=== PATIENT | male | born 1980 | race African-American/Black ===

== ENCOUNTER 2017-08-16 07:08 | Outpatient (CLI) | payer OTHER ==
[~2017-08-16 07:08] MED LIST: ATIVAN1 M1; AVELOX ABC PAC400 MG PO; CIPRO500 MG PO; DEPAKOTE ER500 MG; DOLOGEN CAPLET1 EACH PO; GILTUSS TR TAB1 EACH PO; NEO-BACIT-POLY3.5 G1 OP; RISPERDAL4 MG; TESSALON200 MG; WELLBUTRIN SR100 MG; ZITHROMAX200 MG PO; ZITHROMAX500 MG; ZYRTEC10 MG PO
== END 2017-08-16 07:13 | disposition home or self-care (01) ==
LOC: LAB 07:08
DX: N41.0 Acute prostatitis (principal)

== ENCOUNTER 2017-12-12 17:40 | Outpatient (CLI) | payer OTHER | END 2017-12-12 17:50 | disposition home or self-care (01) | LOC: RAD 17:40 | DX: M54.5 Low back pain (principal) ==

== ENCOUNTER 2017-12-25 10:44 | Outpatient (CLI) | payer OTHER | END 2017-12-25 10:50 | disposition home or self-care (01) | LOC: LAB 10:44 | DX: M54.5 Low back pain (principal); N64.9 Disorder of breast, unspecified; E78.2 Mixed hyperlipidemia; R73.01 Impaired fasting glucose ==

== ENCOUNTER 2017-12-25 13:32 | Outpatient (CLI) | payer OTHER | END 2017-12-25 13:39 | disposition home or self-care (01) | LOC: RAD 13:32 | DX: R05 Cough (principal) ==

== ENCOUNTER 2017-12-30 09:37 | Outpatient (CLI) | payer OTHER | END 2017-12-30 09:45 | disposition home or self-care (01) | LOC: SONOGRAMA 09:37 | DX: N64.9 Disorder of breast, unspecified (principal) ==

== ENCOUNTER 2018-11-04 04:08 | Emergency (ER) | payer OTHER ==
[~2018-11-04] VITALS: Ht 162.6 cm; Wt 113.4 kg
[2018-11-04] MEDS ORDERED: ALBUTEROL2.5 MG/3 M IH (08:02)
[2018-11-04] MEDS ORDERED: ZYNCOF 20-400120 ML PO (08:02)
[2018-11-04] MEDS ORDERED: SYMBICORT 16010.2 GM IH (08:02)
== END 2018-11-04 08:24 | disposition home or self-care (01) ==
LOC: ER 04:08
DX: J45.998 Other asthma (principal)

== ENCOUNTER 2019-01-27 12:28 | Outpatient (CLI) | payer OTHER ==
[~2019-01-27 12:28] MED LIST changes: +ALBUTEROL2.5 MG/3 M IH; +SYMBICORT 16010.2 GM IH; +ZYNCOF 20-400120 ML PO
== END 2019-01-27 12:38 | disposition home or self-care (01) ==
LOC: RAD 12:28
DX: M25.561 Pain in right knee (principal)

== ENCOUNTER 2019-05-31 11:45 | Outpatient (CLI) | payer OTHER | END 2019-05-31 15:00 | disposition home or self-care (01) | LOC: LAB 11:45 | DX: A49.01 Methicillin susceptible Staphylococcus aureus infection, unspecified site (principal); B01.0 Varicella meningitis ==

== ENCOUNTER 2019-08-06 11:12 | Outpatient (CLI) | payer OTHER | END 2019-08-06 12:00 | disposition home or self-care (01) | LOC: MRI 11:12 | DX: S83.211A Bucket-handle tear of medial meniscus, current injury, right knee, initial encounter (principal); S83.241A Other tear of medial meniscus, current injury, right knee, initial encounter | CPT/HCPCS: 73721 ==

== ENCOUNTER 2019-12-11 14:36 | Emergency (ER) | payer OTHER ==
[~2019-12-11] VITALS: Ht 165.1 cm; Wt 98.0 kg
[2019-12-11] MEDS ORDERED: [UNRECOGNIZED DRUG - OTHER] (14:53)
== END 2019-12-11 17:53 | disposition home or self-care (01) ==
LOC: ER 14:36
DX: H11.32 Conjunctival hemorrhage, left eye (principal)

== ENCOUNTER → 2020-04-06 10:35 | Outpatient (CLI) | payer OTHER ==
[~2020-04-06 10:35] MED LIST changes: +[UNRECOGNIZED DRUG - OTHER]
== END | disposition home or self-care (01) ==
LOC: LAB 10:35
PROVIDERS: ATTEND General Practice
DX: E03.8 Other specified hypothyroidism (principal); N41.0 Acute prostatitis; I10 Essential (primary) hypertension; Z12.5 Encounter for screening for malignant neoplasm of prostate; E78.49 Other hyperlipidemia; R30.0 Dysuria; D64.89 Other specified anemias

== ENCOUNTER 2020-04-17 14:30 | Outpatient (CLI) | payer OTHER | END 2020-04-17 14:32 | disposition home or self-care (01) | LOC: RAD 14:30 | PROVIDERS: ATTEND General Practice | DX: M25.512 Pain in left shoulder (principal) ==

== ENCOUNTER 2020-06-20 10:55 | Outpatient (CLI) | payer OTHER | END 2020-06-20 11:02 | disposition home or self-care (01) | LOC: RAD 10:55 | PROVIDERS: ATTEND Physical Medicine & Rehabilitation | DX: M50.821 Other cervical disc disorders at C4-C5 level (principal); M17.12 Unilateral primary osteoarthritis, left knee | CPT/HCPCS: 73721 ==

== ENCOUNTER 2020-08-19 09:46 | Emergency (ER) | payer OTHER ==
[~2020-08-19] VITALS: Ht 165.1 cm; Wt 98.4 kg
== END 2020-08-19 12:47 | disposition home or self-care (01) ==
LOC: ER 09:46
DX: N20.0 Calculus of kidney (principal); R19.7 Diarrhea, unspecified; Z20.822 Contact with and (suspected) exposure to COVID-19

== ENCOUNTER 2020-11-28 15:15 | Outpatient (CLI) | payer OTHER | END 2020-11-28 15:25 | disposition home or self-care (01) | LOC: RAD 15:15 | PROVIDERS: ATTEND Orthopaedic Surgery Sports Medicine | DX: M75.42 Impingement syndrome of left shoulder (principal); M54.5 Low back pain; M25.561 Pain in right knee; M25.562 Pain in left knee ==

== ENCOUNTER 2021-08-24 15:26 | Outpatient (CLI) | payer OTHER | END 2021-08-24 15:34 | disposition home or self-care (01) | LOC: RAD 15:26 | PROVIDERS: ATTEND Orthopaedic Surgery Sports Medicine | DX: M25.511 Pain in right shoulder (principal) ==

== ENCOUNTER 2021-09-28 10:27 | Outpatient (CLI) | payer OTHER | END 2021-09-28 13:20 | disposition home or self-care (01) | LOC: LAB 10:27 | PROVIDERS: ATTEND Internal Medicine Rheumatology | DX: M06.4 Inflammatory polyarthropathy (principal); E55.9 Vitamin D deficiency, unspecified; M81.0 Age-related osteoporosis without current pathological fracture; N40.0 Benign prostatic hyperplasia without lower urinary tract symptoms; E78.2 Mixed hyperlipidemia; E03.9 Hypothyroidism, unspecified ==

== ENCOUNTER 2021-09-28 11:49 | Outpatient (CLI) | payer OTHER | END 2021-09-28 11:57 | disposition home or self-care (01) | LOC: RAD 11:49 | PROVIDERS: ATTEND Internal Medicine Rheumatology | DX: M50.80 Other cervical disc disorders, unspecified cervical region (principal) ==

== ENCOUNTER 2022-09-25 10:21 | Outpatient (CLI) | payer OTHER | END 2022-09-25 10:26 | disposition home or self-care (01) | LOC: LAB 10:21 | DX: E03.9 Hypothyroidism, unspecified (principal); E11.9 Type 2 diabetes mellitus without complications; N39.0 Urinary tract infection, site not specified; F33.1 Major depressive disorder, recurrent, moderate; F51.01 Primary insomnia ==

== ENCOUNTER → 2022-12-20 08:56 | Outpatient (CLI) | payer OTHER | END | disposition home or self-care (01) | LOC: LAB 08:56 | PROVIDERS: ATTEND Urology | DX: R97.21 Rising PSA following treatment for malignant neoplasm of prostate (principal) ==

== ENCOUNTER 2024-02-23 09:27 | Outpatient (CLI) | payer OTHER ==
[2024-02-23 10:15] LABS: URINE APPEARANCE Clear; URINE BILIRRUBIN Negative (NEGATIVE); URINE BLOOD Negative; URINE COLOR Yellow; URINE GLUCOSE Negative (NEGATIVE); URINE LEUKOCYTE Negative; URINE NITRATE Negative; URINE PROTEIN Negative (NEGATIVE); URINE UROBILINOGEN 0.2 E.U./dl
[2024-02-23 10:17] LABS: MEAN CELL VOLUME 84.9 fL (80.0-100.00); MEAN CORPUSCULAR HEMOGLOBIN 29.8 pg (27.00-32.0); PLATELET COUNT 167 K/uL (150-450); RED BLOOD COUNT 4.71 M/uL (4.00-6.00); RED CELL DISTRIBUTION WIDTH 13.4 % (11.5-14.5)
[2024-02-23 10:19] LABS: URINE BACTERIA 8.8 uL (0.0-1933); URINE EPITHELIAL CELLS 4.6 uL (0.0-38.8); URINE WBC 21.4 uL (0.0-23.2)
[2024-02-23 10:21] LABS: URINE RBC 1.8 uL (0.0-20.8)
[2024-02-23 10:27] LABS: ERYTHROCYTE SEDIMENTATION RATE 15 mm/hr
[2024-02-23 11:38] LABS: ALBUMIN 3.7 gm/dL (3.4-5.0); BILIRUBIN TOTAL 0.87 mg/dL (0.3-1.2); CALCIUM 9.1 mg/dL (8.5-10.1); CHOL HDL RATIO 4.8 (0-5.0); CREATININE SERUM 0.96 mg/dL (0.70-1.30); FREE TRIODOTIRONINE 3.26 pg/ml (2.18-3.98); GFR 85.49; GLOBULINA 3.3 G/DL (2.4-3.5); POTASSIUM 3.89 mEq/L (3.5-5.1); PROSTATIC SPECIFIC ANTIGEN 0.46 NG/ML (0.010-4.00); T4 TOTAL 9.45 UG/DL (4.5-12.1); TSH 2.63 uIU/mL (0.358-3.74)
[2024-02-23 11:42] LABS: C-REACTIVE PROTEIN 1.13 MG/DL (0.00-0.29)
== END 2024-02-23 09:28 | disposition home or self-care (01) ==
LOC: LAB 09:27
PROVIDERS: ATTEND Internal Medicine
DX: N41.8 Other inflammatory diseases of prostate (principal); F31.10 Bipolar disorder, current episode manic without psychotic features, unspecified; E55.9 Vitamin D deficiency, unspecified; I11.9 Hypertensive heart disease without heart failure; R73.9 Hyperglycemia, unspecified; E78.9 Disorder of lipoprotein metabolism, unspecified; E11.9 Type 2 diabetes mellitus without complications; Z12.11 Encounter for screening for malignant neoplasm of colon; Z13.29 Encounter for screening for other suspected endocrine disorder; R31.9 Hematuria, unspecified

== ENCOUNTER 2024-02-23 10:26 | Outpatient (CLI) | payer OTHER | END 2024-02-23 10:39 | disposition home or self-care (01) | LOC: TOM 10:26 | PROVIDERS: ATTEND Internal Medicine | DX: R31.9 Hematuria, unspecified (principal) ==

== ENCOUNTER 2024-02-28 02:16 | Emergency (ER) | payer OTHER ==
[~2024-02-28] VITALS: Ht 160 cm; Wt 116.1 kg
[2024-02-28] MEDS ORDERED: RISPERDAL25 MG/2 M1 IM (02:24)
[2024-02-28] MEDS ORDERED: SEROQUEL50 MG PO (02:24)
[2024-02-28] MEDS ORDERED: PROZAC20 MG PO (02:25)
[2024-02-28] MEDS ORDERED: KETOROLAC TROMETHAMINE 60 MG VIAL IM STA (02:50)
[2024-02-28] MEDS ORDERED: KETOROLAC TROMETHAMINE 60 MG VIAL IM ONE (02:56)
== END 2024-02-28 02:59 | disposition home or self-care (01) ==
LOC: ER 02:18
DX: M94.0 Chondrocostal junction syndrome [Tietze] (principal); R07.89 Other chest pain

== ENCOUNTER 2024-05-11 12:37 | Outpatient (CLI) | payer OTHER ==
[~2024-05-11 12:37] MED LIST changes: +PROZAC20 MG PO; +RISPERDAL25 MG/2 M1 IM; +SEROQUEL50 MG PO
== END 2024-05-11 13:02 | disposition home or self-care (01) ==
LOC: MRI 12:37
PROVIDERS: ATTEND Psychiatry & Neurology Neurology
DX: G31.84 Mild cognitive impairment of uncertain or unknown etiology (principal)
CPT/HCPCS: 70551

== ENCOUNTER 2024-05-24 14:47 | Emergency (ER) | payer OTHER ==
[~2024-05-24] VITALS: Ht 165.1 cm; Wt 117.9 kg
[2024-05-24] MEDS ORDERED: WELLBUTRIN SR150 MG PO (15:46)
[2024-05-24] MEDS ORDERED: LAMICTAL XR200 MG PO (15:47)
[2024-05-24] MEDS ORDERED: PEPCID AC20 MG PO ×2 (15:49→20:59)
[2024-05-24] MEDS ORDERED: ARICEPT10 MG PO (15:50)
[2024-05-24] MEDS ORDERED: FAMOTIDINE/PF 20 MG in 0.9 % SODIUM CHLORIDE 8 ML IV PUSH STA (16:08)
[2024-05-24] MEDS ORDERED: 0.9 % SODIUM CHLORIDE 1,000 ML IV SCH (16:15)
[2024-05-24] MEDS ORDERED: KETOROLAC TROMETHAMINE 30 MG VIAL IV ONE (16:15)
[2024-05-24] MEDS ORDERED: ONDANSETRON HCL 2 MG/ML VIAL IV ONE (16:15)
[2024-05-24 17:07] LABS: HEMATOCRIT 42.7 % (39.0-48.0); HEMOGLOBIN 14.9 g/dL (13-16.00); MEAN CELL VOLUME 85.2 fL (80.0-100.00); MEAN CORPUSCULAR HEMOGLOBIN 29.8 pg (27.00-32.0); MEAN CORPUSCULAR HGB CONC 34.9 g/dl (32.0-36.0); PLATELET COUNT 211 K/uL (150-450); RED CELL DISTRIBUTION WIDTH 14.3 % (11.5-14.5)
[2024-05-24 17:46] LABS: ALBUMIN 4.2 gm/dL (3.4-5.0); BILIRUBIN TOTAL 0.89 mg/dL (0.3-1.2); CALCIUM 9.6 mg/dL (8.5-10.1); CREATININE SERUM 1.14 mg/dL (0.70-1.30); GFR 70.11; GLOBULINA 3.7 G/DL (2.4-3.5); POTASSIUM 4.06 mEq/L (3.5-5.1); TOTAL PROTEIN 7.9 gm/dL (6.4-8.2)
[2024-05-24 18:44] LABS: PH,URINE 6.5 (5.0-8.0); URINE APPEARANCE Clear; URINE BILIRRUBIN Negative (NEGATIVE); URINE BLOOD Negative; URINE COLOR Yellow; URINE GLUCOSE Negative (NEGATIVE); URINE KETONE Trace (NEGATIVE); URINE LEUKOCYTE Trace; URINE NITRATE Negative; URINE PROTEIN Trace (NEGATIVE)
[2024-05-24 18:45] LABS: URINE BACTERIA 30.2 uL (0.0-1933); URINE RBC 24.5 uL (0.0-20.8); URINE WBC 51.4 uL (0.0-23.2)
[2024-05-24 19:32] LABS: BILIRUBIN,CONJUGATED 0.17 mg/dL (0.0-0.2); BILIRUBIN,UNCONJUGATED 0.72 mg/dL (0.0-0.6)
[2024-05-24] MEDS ORDERED: ZOFRAN8 MG PO (20:59)
== END 2024-05-24 21:21 | disposition home or self-care (01) ==
LOC: ER 14:49
PROVIDERS: General Practice
DX: R11.2 Nausea with vomiting, unspecified (principal); R07.89 Other chest pain

== ENCOUNTER → 2024-07-06 14:56 | Outpatient (CLI) | payer OTHER ==
[~2024-07-06 14:56] MED LIST changes: +ARICEPT10 MG PO; +LAMICTAL XR200 MG PO; +PEPCID AC20 MG PO; +WELLBUTRIN SR150 MG PO; +ZOFRAN8 MG PO
[2024-07-06 15:45] LABS: URINE APPEARANCE Clear; URINE BILIRRUBIN Negative (NEGATIVE); URINE BLOOD Negative; URINE COLOR Yellow; URINE GLUCOSE Negative (NEGATIVE); URINE KETONE Negative (NEGATIVE); URINE LEUKOCYTE Negative; URINE NITRATE Negative; URINE PROTEIN Negative (NEGATIVE); URINE UROBILINOGEN 0.2 E.U./dl
[2024-07-06 15:48] LABS: HEMATOCRIT 43.1 % (39.0-48.0); HEMOGLOBIN 15.3 g/dL (13-16.00); MEAN CELL VOLUME 84.8 fL (80.0-100.00); MEAN CORPUSCULAR HGB CONC 35.4 g/dl (32.0-36.0); PLATELET COUNT 190 K/uL (150-450); RED BLOOD COUNT 5.08 M/uL (4.00-6.00); RED CELL DISTRIBUTION WIDTH 14.4 % (11.5-14.5)
[2024-07-06 15:57] LABS: URINE BACTERIA 2.4 uL (0.0-1933); URINE EPITHELIAL CELLS 0.3 uL (0.0-38.8); URINE WBC 1.1 uL (0.0-23.2)
== END | disposition home or self-care (01) ==
LOC: LAB 14:56
PROVIDERS: ATTEND General Practice
DX: R79.9 Abnormal finding of blood chemistry, unspecified (principal); N39.0 Urinary tract infection, site not specified; R97.20 Elevated prostate specific antigen [PSA]

== ENCOUNTER 2024-07-12 09:37 | Outpatient (CLI) | payer OTHER | END 2024-07-12 09:41 | disposition home or self-care (01) | LOC: SONOGRAMA 09:37 | PROVIDERS: ATTEND General Practice | DX: N28.89 Other specified disorders of kidney and ureter (principal); N20.2 Calculus of kidney with calculus of ureter; N20.1 Calculus of ureter ==

== ENCOUNTER → 2024-08-31 09:51 | Outpatient (CLI) | payer OTHER ==
[2024-08-31 10:31] LABS: HEMOGLOBIN 15.5 g/dL (13-16.00); MEAN CELL VOLUME 85.4 fL (80.0-100.00); MEAN CORPUSCULAR HEMOGLOBIN 30.1 pg (27.00-32.0); MEAN CORPUSCULAR HGB CONC 35.2 g/dl (32.0-36.0); PLATELET COUNT 214 K/uL (150-450); RED BLOOD COUNT 5.15 M/uL (4.00-6.00); RED CELL DISTRIBUTION WIDTH 13.7 % (11.5-14.5)
[2024-08-31 10:31] LABS: PH,URINE 6.5 (5.0-8.0); URINE APPEARANCE Clear; URINE BILIRRUBIN Negative (NEGATIVE); URINE BLOOD Negative; URINE COLOR Yellow; URINE GLUCOSE Negative (NEGATIVE); URINE KETONE Negative (NEGATIVE); URINE LEUKOCYTE Negative; URINE NITRATE Negative; URINE PROTEIN Negative (NEGATIVE); URINE UROBILINOGEN 0.2 E.U./dl
[2024-08-31 10:35] LABS: URINE BACTERIA 13.4 uL (0.0-1933); URINE RBC 2.5 uL (0.0-20.8); URINE WBC 4.4 uL (0.0-23.2)
[2024-08-31 10:37] LABS: URINE EPITHELIAL CELLS 0.9 uL (0.0-38.8)
[2024-08-31 11:39] LABS: ALBUMIN 3.8 gm/dL (3.4-5.0); BILIRUBIN TOTAL 0.72 mg/dL (0.3-1.2); CALCIUM 9.4 mg/dL (8.5-10.1); CREATININE SERUM 0.92 mg/dL (0.70-1.30); GFR 89.37; GLOBULINA 3.3 G/DL (2.4-3.5); POTASSIUM 4.4 mEq/L (3.5-5.1); T4 TOTAL 9.95 UG/DL (4.5-12.1); TOTAL PROTEIN 7.1 gm/dL (6.4-8.2); TSH 1.33 uIU/mL (0.358-3.74)
[2024-08-31 11:47] LABS: T3 TOTAL 1.4 ng/ml (0.846-2.02); VITAMIN D3 25 HYDROXY 32.93 ng/ml (30-120)
== END | disposition home or self-care (01) ==
LOC: LAB 09:51
PROVIDERS: ATTEND Internal Medicine
DX: E11.9 Type 2 diabetes mellitus without complications (principal); E34.9 Endocrine disorder, unspecified; E07.9 Disorder of thyroid, unspecified; E55.9 Vitamin D deficiency, unspecified; E53.9 Vitamin B deficiency, unspecified; E78.5 Hyperlipidemia, unspecified; N30.00 Acute cystitis without hematuria; I10 Essential (primary) hypertension

== ENCOUNTER 2024-12-09 14:27 | Emergency (ER) | payer OTHER ==
[~2024-12-09] VITALS: Ht 165.1 cm; Wt 104.3 kg
[2024-12-09 14:52] VITALS: BP 137/79; O2SAT 100
[2024-12-09] MEDS ORDERED: GENTAMICIN SULFATE 0.15 MG/DR DROPS 5ML OP ONE (17:00)
[2024-12-09] MEDS ORDERED: GENTAMICIN SULFATE 0.15 MG/DR DROPS 5ML OP SCH (18:00)
== END 2024-12-09 17:30 | disposition home or self-care (01) ==
LOC: ER 14:27
DX: H11.32 Conjunctival hemorrhage, left eye (principal); J45.909 Unspecified asthma, uncomplicated; I10 Essential (primary) hypertension; F32.89 Other specified depressive episodes

== ENCOUNTER 2024-12-10 14:05 | Outpatient (CLI) | payer OTHER ==
[2024-12-10 14:25] LABS: BASO % 0.3 % (0.1-1.2); EOS # 0.27 (0.04-0.54); EOS % 2.9 % (0.7-7.0); HEMOGLOBIN 15.8 g/dL (13.7-17.5); LYMPH # 2.16 (1.18-3.74); LYMPH % 23.5 % (19.3-53.1); MEAN CORPUSCULAR HEMOGLOBIN 29.6 pg (25.6-32.2); MONO # 0.63 (0.24-0.82); MONO % 6.8 % (4.7-12.5); NEUT # 6.05 (1.56-6.13); NEUT % 65.8 % (34.0-71.1); PLATELET COUNT 224 K/uL (163-369); RED BLOOD COUNT 5.33 M/uL (4.63-6.08); RED CELL DISTRIBUTION WIDTH 13.3 % (11.6-14.4)
== END 2024-12-10 14:12 | disposition home or self-care (01) ==
LOC: LAB 14:05
PROVIDERS: ATTEND Ophthalmology
DX: I11.9 Hypertensive heart disease without heart failure (principal)

== ENCOUNTER 2024-12-22 07:30 | Outpatient (CLI) | payer OTHER ==
[2024-12-22 07:55] LABS: BASO % 0.4 % (0.1-1.2); EOS # 0.29 (0.04-0.54); EOS % 3.5 % (0.7-7.0); HEMATOCRIT 42.6 % (40.1-51.0); HEMOGLOBIN 14.9 g/dL (13.7-17.5); LYMPH # 1.66 (1.18-3.74); MEAN CORPUSCULAR HEMOGLOBIN 29.3 pg (25.6-32.2); MONO # 0.61 (0.24-0.82); MONO % 7.3 % (4.7-12.5); NEUT # 5.68 (1.56-6.13); NEUT % 68.4 % (34.0-71.1); PLATELET COUNT 197 K/uL (163-369); RED BLOOD COUNT 5.08 M/uL (4.63-6.08); RED CELL DISTRIBUTION WIDTH 12.9 % (11.6-14.4)
[2024-12-22 07:58] LABS: URINE APPEARANCE Clear; URINE BILIRRUBIN Negative (NEGATIVE); URINE BLOOD Moderate; URINE COLOR Yellow; URINE GLUCOSE Negative (NEGATIVE); URINE KETONE Negative (NEGATIVE); URINE LEUKOCYTE Negative; URINE NITRATE Negative; URINE PROTEIN Negative (NEGATIVE); URINE UROBILINOGEN 0.2 E.U./dl
[2024-12-22 08:03] LABS: URINE RBC 2.3 uL (0.0-20.8); URINE WBC 4.3 uL (0.0-23.2)
[2024-12-22 08:07] LABS: ERYTHROCYTE SEDIMENTATION RATE 8 mm/hr (0-15); URINE BACTERIA 3.6 uL (0.0-1933); URINE EPITHELIAL CELLS 0.7 uL (0.0-38.8)
[2024-12-22 08:34] LABS: ALBUMIN 3.7 gm/dL (3.4-5.0); ALKALINE PHOSPHATASE 92 U/L (50-136); ALT/SGPT 33 U/L (12-78); ANION GAP 9 (10.0-20.0); AST/SGOT 16 U/L (15-37); BILIRUBIN TOTAL 0.57 mg/dL (0.3-1.2); BLOOD UREA NITROGEN 11 mg/dL (7-18); BUN CREA RATIO 12 (7.0-25.0); CALCIUM 8.5 mg/dL (8.5-10.1); CARBON DIOXIDE 27 mEq/L (21-32); CHLORIDE 110 mmol/L (98-107); CHOL HDL RATIO 3.8 (0-5.0); CHOLESTEROL 169 mg/dL (0-200); CREATININE SERUM 0.93 mg/dL (0.70-1.30); GFR 88.26; GLOBULINA 3.1 G/DL (2.4-3.5); GLUCOSE FASTING 104 mg/dL (65-100); HDL 45 mg/dl (40-60); LDL 99 mg/dl (0-130); OSMOLALITY SERUM 283 MOSM/KG (275-295); POTASSIUM 3.95 mEq/L (3.5-5.1); SODIUM 142 mmol/L (136-145); TOTAL PROTEIN 6.8 gm/dL (6.4-8.2); TRIGLYCERIDES 126 mg/dL (0-150); VLDL 25 (0-39)
[2024-12-22 08:36] LABS: C-REACTIVE PROTEIN < 0.29 MG/DL (0.00-0.29)
[2024-12-22 17:14] LABS: ob NEGATIVE (NEGATIVE)
== END 2024-12-22 07:31 | disposition home or self-care (01) ==
LOC: LAB 07:30
PROVIDERS: ATTEND Internal Medicine
DX: N41.8 Other inflammatory diseases of prostate (principal); F31.10 Bipolar disorder, current episode manic without psychotic features, unspecified; E55.9 Vitamin D deficiency, unspecified; I11.9 Hypertensive heart disease without heart failure; R73.9 Hyperglycemia, unspecified; E78.9 Disorder of lipoprotein metabolism, unspecified; Z12.11 Encounter for screening for malignant neoplasm of colon; Z13.29 Encounter for screening for other suspected endocrine disorder; R31.9 Hematuria, unspecified

== ENCOUNTER 2024-12-22 08:04 | Outpatient (CLI) | payer OTHER | END 2024-12-22 08:10 | disposition home or self-care (01) | LOC: SONOGRAMA 08:04 | PROVIDERS: ATTEND Internal Medicine | DX: Z13.29 Encounter for screening for other suspected endocrine disorder (principal) ==

== ENCOUNTER 2025-01-17 08:14 | Outpatient (CLI) | payer OTHER | END 2025-01-17 08:19 | disposition home or self-care (01) | LOC: SONOGRAMA 08:14 | PROVIDERS: ATTEND Pathology Anatomic Pathology | DX: D34 Benign neoplasm of thyroid gland (principal); E07.89 Other specified disorders of thyroid; E04.1 Nontoxic single thyroid nodule ==

== ENCOUNTER 2025-02-04 15:25 | Emergency (ER) | payer OTHER ==
[~2025-02-04] VITALS: Ht 165.1 cm; Wt 108.0 kg
[2025-02-04] MEDS ORDERED: COZAAR50 MG (16:04)
[2025-02-04] MEDS ORDERED: ENALAPRILAT DIHYDRATE 1.25 MG/ML VIAL IV ONE (17:00)
[2025-02-04 17:16] LABS: BASO % 0.3 % (0.1-1.2); EOS # 0.33 (0.04-0.54); EOS % 3.7 % (0.7-7.0); LYMPH # 2.37 (1.18-3.74); LYMPH % 26.4 % (19.3-53.1); MEAN PLATELET VOLUME 10.80 fl (9.4-12.4); MONO # 0.75 (0.24-0.82); MONO % 8.4 % (4.7-12.5); NEUT # 5.45 (1.56-6.13); NEUT % 60.8 % (34.0-71.1); RED CELL DISTRIBUTION WIDTH 12.8 % (11.6-14.4)
[2025-02-04 18:02] LABS: COVID-19 AG NEGATIVE (NEGATIVE)
[2025-02-04 18:05] LABS: ALT/SGPT 40.0 U/L (12-78); AST/SGOT 18.0 U/L (15-37); BILIRUBIN TOTAL 0.65 mg/dL (0.3-1.2); BUN CREA RATIO 12.0 (7.0-25.0); CKMB 1.2 NG/ML (0.5-3.6); CREATININE SERUM 0.94 mg/dL (0.70-1.30); GFR 87.18; GLOBULINA 3.6 G/DL (2.4-3.5); GLUCOSE FASTING 83.0 mg/dL (65-100); OSMOLALITY SERUM 284.0 MOSM/KG (275-295)
== END 2025-02-04 21:22 | disposition home or self-care (01) ==
LOC: ER 15:25
PROVIDERS: Emergency Medicine
DX: F32.A Depression, unspecified (principal); I10 Essential (primary) hypertension; R07.89 Other chest pain; R42 Dizziness and giddiness